=== PATIENT | female | born 1990 | race Caucasian/White ===

== ENCOUNTER 2016-09-03 09:42 | Emergency (ER) | payer BC ==
[2016-09-03] MEDS ORDERED: SULFAMETHOXAZOLE/TRIMETHOPRIM 800-160 MG TABLET PO ONE (11:21)
[2016-09-03] MEDS ORDERED: HYDROCODONE/ACETAMINOPHEN 5-325 MG 6 TAB/DSPK PO PRN (11:22)
--- NOTE | 2016-09-03 11:28 | ER Document Report ---
ED General - General Chief Complaint: Rectal Pain Stated Complaint: RECTAL PAIN Mode of Arrival: Ambulatory Information source: Patient Notes: Patient presents to the emergency department with complaints of pain to her rectal area, possibly hemorrhoids.. Patient reports she noted pain started on Wednesday increasing since then. Patient reports she treated herself with preparation H felt a little better but still continued hurt. Denies other symptoms such as fever vomiting diarrhea. Denies history of hemorrhoids. TRAVEL OUTSIDE OF THE [place] IN LAST 30 DAYS: No - HPI Onset: Other Onset/Duration: Persistent - Wednesday Quality of pain: Achy, Pressure Severity: Severe Pain Level: 4 Associated symptoms: None Exacerbated by: Sitting Relieved by: Denies Similar symptoms previously: No Recently seen / treated by doctor: No - Related Data Allergies/Adverse Reactions: Penicillins Allergy (Verified 09/03/16 09:47) Past Medical History - General Information source: Patient Last Menstrual Period: 08/23/16 denies - Social History Smoking Status: Current Every Day Smoker Chew tobacco use (# tins/day): No Frequency of alcohol use: Rare Drug Abuse: None Occupation: also Lives with: Friend - Roommates Family History: Reviewed & Not Pertinent Patient has suicidal ideation: No Patient has homicidal ideation: No - Medical History Medical History: Negative Renal/ Medical History: Denies: Hx Peritoneal Dialysis Past Surgical History: Reports: Hx Tonsillectomy Review of Systems - Review of Systems Notes: Review HPI for review of systems., All other systems negative Physical Exam - Vital signs Vitals: Temp Pulse Resp BP Pulse Ox 98.2 F 103 H 17 142/97 H 96 09/03/16 09:46 09/03/16 09:46 09/03/16 09:46 09/03/16 09:46 09/03/16 09:46 - Notes Notes: PHYSICAL EXAMINATION: GENERAL: Well-appearing and in no acute distress anxious HEAD: Atraumatic, normocephalic. EYES: Pupils equal round extraocular movements intact, sclera anicteric, conjunctiva are normal. ENT: nares patent . Moist mucous membranes. NECK: Normal range of motion, supple LUNGS: RR even/unlabored ABDOMEN: No c/o pain EXTREMITIES: Normal range of motion, no pitting edema. No cyanosis. NEUROLOGICAL: Cranial nerves grossly intact. Normal sensory/motor PSYCH: Normal mood, normal affect. SKIN: Warm, Dry, normal turgor, + abscess right buttocks - Skin Skin Temperature: Warm Skin Moisture: Dry Skin irregularity: Abscess Location of irregularity: Other - right buttocks abscess noted close to gluteal fold, no rectal abscess Course - Re-evaluation Re-evalutation: 09/03/16 11:31 As soon as I examined patient's right buttocks gluteal fold the abscess started draining. I drained a very large amount of copious white bloody discharge from the site by palpation and pushing the area. No incision was made. No induration noted. No abscess noted around her rectal area. Patient tolerated the procedure well. Patient was instructed on the signs and symptoms of infection. Patient was also instructed on how to care for the abscess. She was instructed to return tomorrow for recheck. She was instructed that if the area became more painful, larger to come back sooner. Patient reports she cannot afford medications. We discussed sulfa that is on the $4 list. She reports she is not . Patient reports she will be able to pick that up. She was prescribed dispense pack [place] for pain. - Vital Signs Vital signs: Temp Pulse Resp BP Pulse Ox 98.2 F 103 H 17 142/97 H 96 09/03/16 09:46 09/03/16 09:46 09/03/16 09:46 09/03/16 09:46 09/03/16 09:46 Discharge - Discharge Clinical Impression: Abscess, Elevated blood pressure reading Condition: Stable Disposition: HOME, SELF-CARE Instructions: Abscess ([facility]), Oral Narcotic Medication ([facility]), Trimethoprim- Sulfa ([facility]) Additional Instructions: *You have been treated for an abscess with drainage *Take medication as prescribed *Monitor the site for signs of increasing infection such as increasing pain, redness, swelling, warmth *Wash the site twice daily as discussed *Follow up here for a recheck tomorrow *Return to ED earlier for signs of increasing infection, worsening condition, changes, needs *Monitor your blood pressure. Your blood pressure was elevated today. This may be because you were anxious, in pain or because you need medication. It is important to follow up with your primary care provider for full evaluation. Prescriptions: Sulfamethoxazole/Trimethoprim [Bactrim Ds Tablet] 1 each PO BID #20 tablet Forms: Elevated Blood Pressure, Return to Work
[2016-09-03 11:41] VITALS: BP 131/91
== END 2016-09-03 11:43 | disposition home or self-care (01) ==
LOC: ER 09:42
DX: L02.31 Cutaneous abscess of buttock (principal); K62.89 Other specified diseases of anus and rectum; R03.0 Elevated blood-pressure reading, without diagnosis of hypertension; F17.200 Nicotine dependence, unspecified, uncomplicated; Z88.0 Allergy status to penicillin
CPT/HCPCS: 87070; 87075; 87077; 87186; 87205; 99283

== ENCOUNTER 2016-09-05 22:40 | Emergency (ER) | payer BC ==
[2016-09-06] MEDS ORDERED: HYDROCODONE/ACETAMINOPHEN 5-325 MG TABLET PO ONE (00:05)
--- NOTE | 2016-09-06 00:09 | ER Document Report ---
ED General - General Chief Complaint: Rectal Abscess Stated Complaint: POSSIBLE ABSCESS Notes: Patient is a 26-year-old female who was seen here a few days ago after having a gluteal abscess incised and drained. Patient says initially was doing better but now starting to swell again. She still has a very small hole that is draining however Draining a small amount and she feels as if it is becoming more painful. No fevers. No vomiting. She has been taking Bactrim. She was sent home with 6 [place] tablets but has since ran out and the pain is getting worse. She has no other complaints at this time. TRAVEL OUTSIDE OF THE [place] IN LAST 30 DAYS: No - Related Data Allergies/Adverse Reactions: Penicillins Allergy (Verified 09/03/16 09:47) Past Medical History - Social History Smoking Status: Current Every Day Smoker Frequency of alcohol use: Occasional Drug Abuse: Marijuana Family History: Reviewed & Not Pertinent Patient has suicidal ideation: No Patient has homicidal ideation: No Renal/ Medical History: Denies: Hx Peritoneal Dialysis Past Surgical History: Reports: Hx Tonsillectomy Review of Systems - Review of Systems Notes: My Normal Review Basic REVIEW OF SYSTEMS: CONSTITUTIONAL : Denies fever, chills, or sweats. Denies recent illness. GASTROINTESTINAL: Denies abdominal pain. Denies nausea, vomiting, or diarrhea. Denies constipation. Last BM: MUSCULOSKELETAL: Denies neck or back pain or joint pain or swelling. SKIN: Gluteal abscess NEUROLOGICAL: Denies altered mental status or loss of consciousness. ALL OTHER SYSTEMS REVIEWED AND NEGATIVE. Physical Exam - Vital signs Vitals: Temp Pulse Resp BP Pulse Ox 97.8 F 109 H 18 135/84 H 97 09/05/16 22:43 09/05/16 22:43 09/05/16 22:43 09/05/16 22:43 09/05/16 22:43 - Notes Notes: General Appearance: Well nourished, alert, cooperative, no acute distress, no obvious discomfort. Vitals: reviewed, See vital signs table. Eyes: PERRL, EOMI, Conjuctiva clear Extremities: strength 5/5 in all extremities, good pulses in all extremities, no swelling or tenderness in the extremities, no edema. Rectal: Abscess is approximately 3 inches away from the rectum in the left clear cleft. Abscess is not extend into the rectum. Very fluctuance is approximately 2 cm. There is a small hole leftover from the previous incision. It is draining a small amount of pus. Skin: warm, dry, appropriate color, no rash Neuro: speech clear, oriented x 3, normal affect, responds appropriately to questions. Course - Vital Signs Vital signs: Temp Pulse Resp BP Pulse Ox 97.8 F 109 H 18 135/84 H 97 09/05/16 22:43 09/05/16 22:43 09/05/16 22:43 09/05/16 22:43 09/05/16 22:43 - Transfer of Care Notes: 09/06/16 00:45 Patient's abscess was reaccumulating and the initial incision was almost completely sealed. I did incise make the hole larger. I did apply packing. I was able to give a moderate to large amount of pus after the incision. Patient feels much improved. Again the abscess does not extend down to the rectum on physical exam. Abscess is approximately 2 inches away from the rectum. There is no erythema or redness or swelling going into the rectum. I informed the patient that she must return to ER immediately if she has recurrent swelling, fever, or increasing pain. Encourage return to ER in 2 days for reevaluation. Patient agrees with plan and will be discharged home. Dictation of this chart was performed using voice recognition software; therefore, there may be some unintended grammatical errors. Procedures - Incision and Drainage right gluteal Type: Simple Blade size: 11 I&D procedure: Shurclens applied Incision Method: Incision made by scalpel Amount/type of drainage: moderate amount of purulent Notes: 09/06/16 00:45 Packing placed to keep void open for continued drainage Discharge - Discharge Clinical Impression: Abscess Disposition: HOME, SELF-CARE Additional Instructions: ABSCESS: POST INCISION AND DRAINAGE: You have had an incision made to allow drainage of an abscess. The incision must remain open so that pus and debris can drain from the wound. If the abscess cavity is large, packing is placed. This keeps the tissues from collapsing and trapping pus inside, while the body shrinks the cavity. The packing may need to be replaced every day or two. The physician will instruct you on the packing. Keep a bulky dressing over the area. Replace it if it becomes saturated with blood or pus. Do not disturb the packing (if present). You may shower and cleanse the area with gentle soap and warm water two or three times a day. Local warmth may be soothing, and may promote faster healing. Return if you develop high fever or chills, or if you note spreading redness, increasing swelling, or increasing tenderness. ORAL NARCOTIC MEDICATION: You have been given a prescription for pain control. This medication is a narcotic. It's best taken with food, as nausea can result if taken on an empty stomach. Don't operate machinery or drive within six hours of taking this medication. Do not combine this medicine with alcohol, or with any medication which can cause sedation (such as cold tablets or sleeping pills) unless you get permission from the physician. Narcotics tend to cause constipation. If possible, drink plenty of fluids and eat a diet high in fiber and fruits. FOLLOW-UP CARE: Most simple abscesses will not require a follow up visit. If you had packing placed in the abscess, remove it as instructed by the physician. If you have been referred to a physician for follow-up care, call the physicians office for an appointment as you were instructed or within the next two days. If you experience worsening or a significant change in your symptoms, return to the Emergency Department at any time for re-evaluation. Please return to the ER or a physician in 2 days for reevaluation. Please return to the ER immediately if you have increased swelling, fevers, or increasing pain over the area of the abscess. Prescriptions: Clindamycin HCl 300 mg PO ASDIR #56 capsule Hydrocodone/Acetaminophen [[place] 5-325 mg Tablet] 1 tab PO Q4 PRN #16 tablet PRN Reason: For [facility] Pain Forms: Return to Work
[2016-09-06] MEDS ORDERED: HYDROCODONE/ACETAMINOPHEN 5-325 MG 6 TAB/DSPK PO PRN (00:44)
[2016-09-06 00:54] VITALS: BP 120/72
== END 2016-09-06 01:03 | disposition home or self-care (01) ==
LOC: ER 22:40
PROC: 0H98XZZ Drainage of Buttock Skin, External Approach (ICD-10-PCS; principal; 2016-09-05)
DX: K61.1 Rectal abscess (principal); F17.210 Nicotine dependence, cigarettes, uncomplicated
CPT/HCPCS: 99283

== ENCOUNTER 2017-07-15 09:09 | Emergency (ER) | payer SELFPAY ==
[2017-07-15 09:15] VITALS: BP 144/83
[2017-07-15] MEDS ORDERED: OXYCODONE-ACETAMINOPHEN 5-325 MG TABLET PO ONE (09:27)
[2017-07-15] MEDS ORDERED: SULFAMETHOXAZOLE/TRIMETHOPRIM 800-160 MG TABLET PO ONE (09:31)
--- NOTE | 2017-07-15 09:34 | ER Document Report ---
HPI - HPI Patient complains to provider of: abscess Onset: Other - 3 days Onset/Duration: Persistent Quality of pain: Achy Pain Level: 5 Context: Patient presents with abscess to right medial thigh for the past 3 days. Patient denies any fever. Associated Symptoms: denies: Fever Exacerbated by: Movement Relieved by: Denies Similar symptoms previously: Yes Recently seen / treated by doctor: No - ROS ROS below otherwise negative: Yes Systems Reviewed and Negative: Yes All other systems reviewed and negative - CONSTITUTIONAL Constitutional: DENIES: Fever, Chills - GASTROINTESTINAL Gastrointestinal: DENIES: Nausea - REPRODUCTIVE LMP: 1 week - MUSCULOSKELETAL Musculoskeletal: REPORTS: Extremity pain - DERM Skin Color: Erythema Past Medical History - General Information source: Patient - Social History Smoking Status: Current Every Day Smoker Smoking Education Provided: Yes Frequency of alcohol use: Occasional Drug Abuse: Marijuana Occupation: Call center Family History: Reviewed & Not Pertinent Patient has suicidal ideation: No Patient has homicidal ideation: No - Medical History Medical History: Negative Renal/ Medical History: Denies: Hx Peritoneal Dialysis Past Surgical History: Reports: Hx Tonsillectomy Vertical Provider Document - CONSTITUTIONAL Agree With Documented VS: Yes Exam Limitations: No Limitations General Appearance: WD/WN, No Apparent Distress - INFECTION CONTROL TRAVEL OUTSIDE OF THE [place] IN LAST 30 DAYS: No - HEENT HEENT: Atraumatic, Normocephalic - NECK Neck: Normal Inspection - RESPIRATORY Respiratory: No Respiratory Distress O2 Sat by Pulse Oximetry: 98 - CARDIOVASCULAR Cardiovascular: Regular Rate, Regular Rhythm - MUSCULOSKELETAL/EXTREMETIES Musculoskeletal/Extremeties: MAEW, Tender - Right medial thigh tenderness with abscess - NEURO Level of Consciousness: Awake, Alert, Appropriate Motor/Sensory: No Motor Deficit - DERM Integumentary: Warm, Dry, Abscess - Right medial thigh abscess with central area of fluctuance Course - Re-evaluation Re-evalutation: 07/15/17 09:33 The patient has been informed that they may have pre-hypertension or hypertension based on a blood pressure reading in the emergency department. I recommend that patient call the primary care provider listed on their discharge instructions or a physician of their choice by this week to arrange follow-up for further evaluation of possible pre-hypertension or hypertension. Smoking cessation handout provided to patient 07/15/17 09:35 Controlled substance database reviewed - Vital Signs Vital signs: Temp Pulse Resp BP Pulse Ox 98.3 F 96 18 144/83 H 98 07/15/17 09:14 07/15/17 09:14 07/15/17 09:14 07/15/17 09:14 07/15/17 09:14 Procedures - Incision and Drainage Right Thigh Type: Simple Anesthetic type: 1% Lidocaine Blade size: 11 I&D procedure: Betadine prep applied Incision Method: Incision made by scalpel Amount/type of drainage: large amount of purulent drainage Adult Front & Back picture: 1 - abscess Discharge - Discharge Clinical Impression: Abscess, Encounter for incision and drainage procedure, Elevated blood pressure reading Condition: Stable Disposition: HOME, SELF-CARE Instructions: Abscess ([facility]), Oral Narcotic Medication ([facility]), Post Incision and Drainage, Trimethoprim-Sulfa ([facility]) Additional Instructions: Return immediately for any new or worsening symptoms Followup with your primary care provider, call tomorrow to make a followup appointment Prescriptions: Oxycodone HCl/Acetaminophen [Percocet 5-325 mg Tablet] 1 tab PO ASDIR PRN #12 tablet PRN Reason: Sulfamethoxazole/Trimethoprim [Bactrim Ds Tablet] 1 each PO BID #20 tablet Forms: Elevated Blood Pressure, Smoking Cessation Education, Return to Work Referrals: [facility] [Provider Group] - Follow up as needed
== END 2017-07-15 10:35 | disposition home or self-care (01) ==
LOC: ER 09:09
PROC: 0H9HXZZ Drainage of Right Upper Leg Skin, External Approach (ICD-10-PCS; principal; 2017-07-15)
DX: L02.415 Cutaneous abscess of right lower limb (principal); R03.0 Elevated blood-pressure reading, without diagnosis of hypertension; F17.210 Nicotine dependence, cigarettes, uncomplicated
CPT/HCPCS: 99283

== ENCOUNTER 2018-06-23 11:53 | Emergency (ER) | payer SELFPAY ==
[2018-06-23] MEDS ORDERED: ONDANSETRON ODT 4 MG TAB (6 TAB/ER DISP) PO PRN (13:14)
--- NOTE | 2018-06-23 13:18 | ER Document Report ---
HPI - HPI Patient complains to provider of: tailbone pain Time Seen by Provider: 06/23/18 12:41 Onset: Other - wednesday Onset/Duration: Persistent, Worse Quality of pain: Achy Severity: Severe Pain Level: 4 Context: Patient presents emergency department with complaints of tailbone pain. Patient reports she had sex doggy style on Wednesday and the area has been hurting since then. Denies other symptoms such as fever vomiting diarrhea but reports she has been feeling nauseated. She reports that she believes she had food poisoning from [employer] on Wednesday and it is still lingering. Patient does have a history of pilonidal cyst but reports it does not feel the same. Associated Symptoms: None Exacerbated by: Denies Relieved by: Denies Similar symptoms previously: No Recently seen / treated by doctor: No - REPRODUCTIVE Reproductive: DENIES: : Past Medical History - General Information source: Patient Last Menstrual Period: May denies - Social History Smoking Status: Current Every Day Smoker Cigarette use (# per day): Yes Frequency of alcohol use: None Drug Abuse: None Occupation: [employer] Lives with: Friend - boyfriend Family History: Reviewed & Not Pertinent Patient has suicidal ideation: No Patient has homicidal ideation: No Renal/ Medical History: Denies: Hx Peritoneal Dialysis Skin Medical History: Reports Other - Pilonidal abscess Past Surgical History: Reports: Hx Tonsillectomy Vertical Provider Document - CONSTITUTIONAL Agree With Documented VS: Yes Exam Limitations: No Limitations General Appearance: WD/WN, No Apparent Distress - INFECTION CONTROL TRAVEL OUTSIDE OF THE [place] IN LAST 30 DAYS: No - HEENT HEENT: Atraumatic, Normocephalic - NECK Neck: Supple - RESPIRATORY Respiratory: No Respiratory Distress - CARDIOVASCULAR Cardiovascular: Regular Rate - GI/ABDOMEN Gastrointestinal: Abdomen Soft, Abdomen Non-Tender - BACK Back: Normal Inspection - MUSCULOSKELETAL/EXTREMETIES Musculoskeletal/Extremeties: MERE VOGEL - NEURO Level of Consciousness: Awake, Alert, Appropriate Motor/Sensory: No Motor Deficit - DERM Integumentary: Abscess Adult Front & Back Diagram: 1 - swollen, firm, no fluctuance, no erythema, no warmth Course - Re-evaluation Re-evalutation: 06/23/18 13:28 pt is very tearful, she doesn't want to go thur the I&D again, the area is not right to open, + induration, no erythema swelling fluctuance. - Vital Signs Vital signs: Temp Pulse Resp BP Pulse Ox 98.7 F 92 18 142/72 H 99 06/23/18 12:16 06/23/18 12:16 06/23/18 12:16 06/23/18 12:16 06/23/18 12:16 Discharge - Discharge Clinical Impression: Pilonidal abscess Condition: Stable Disposition: HOME, SELF-CARE Instructions: Abscess ([facility]), Antinausea Medication ([facility]), Ibuprofen (General) ([facility]), Trimethoprim-Sulfa ([facility]), Warm Packs ([facility]) Additional Instructions: *You have been treated for an abscess, it is not ready to be opened yet *Take medication as prescribed *Monitor the site for signs of increasing infection such as increasing pain, redness, swelling, warmth *Apply warm packs *Follow up with a primary care provider within 3 days *Return to ED for signs of increasing infection, worsening condition, changes, needs Prescriptions: Ibuprofen [Motrin 800 mg Tablet] 800 mg PO TID #20 tablet Sulfamethoxazole/Trimethoprim [Bactrim Ds Tablet] 1 each PO BID #20 tablet Forms: Elevated Blood Pressure, Smoking Cessation Education, Return to Work
[2018-06-23 14:11] VITALS: BP 133/86
== END 2018-06-23 14:11 | disposition home or self-care (01) ==
LOC: ER 11:53
DX: L05.01 Pilonidal cyst with abscess (principal); R11.0 Nausea; F17.210 Nicotine dependence, cigarettes, uncomplicated
CPT/HCPCS: 99282

== ENCOUNTER 2018-06-25 17:51 | Emergency (ER) | payer SELFPAY ==
[2018-06-25] MEDS ORDERED: LIDOCAINE 1% INJ-PF (10 MG/ML) 30 ML SDV INJ ONE (18:10)
--- NOTE | 2018-06-25 18:18 | ER Document Report ---
ED Skin Rash/Insect Bite/Abscs - General Chief Complaint: Abscess Recheck Stated Complaint: ABCESS Time Seen by Provider: 06/25/18 18:06 Mode of Arrival: Ambulatory Information source: Patient Notes: 28-year-old female presented to ED for pilonidal cyst. She states she was seen here a couple days ago started on antibiotics but was told that it was too O early to open and she would need to come back. Patient is alert and oriented respirations regular and unlabored speaking in full sentences. TRAVEL OUTSIDE OF THE [place] IN LAST 30 DAYS: No - HPI Patient complains to provider of: Tender/swollen area Onset: Last week Onset/Duration: Gradual, Worse Quality of pain: Sharp, Throbbing Severity: Moderate Pain Level: 4 Skin Character: Abscess - Pilonidal abscess Quality of rash: Painful Identify cause: Yes Exacerbated by: Sitting Relieved by: Denies Similar symptoms previously: Yes Recently seen / treated by doctor: Yes - Related Data Allergies/Adverse Reactions: Penicillins Allergy (Verified 06/25/18 17:52) Past Medical History - General Information source: Patient - Social History Smoking Status: Current Every Day Smoker Cigarette use (# per day): Yes Smoking Education Provided: Yes - 4min Frequency of alcohol use: None Drug Abuse: None Occupation: [employer] Lives with: Spouse/Significant other Family History: Reviewed & Not Pertinent Patient has suicidal ideation: No Patient has homicidal ideation: No - Past Medical History Cardiac Medical History: Reports: None Pulmonary Medical History: Reports: None EENT Medical History: Reports: None Neurological Medical History: Reports: None Endocrine Medical History: Reports: None Renal/ Medical History: Reports: None Malignancy Medical History: Reports: None GI Medical History: Reports: None Musculoskeletal Medical History: Reports None Skin Medical History: Reports Hx Cellulitis - Pilonidal cyst Psychiatric Medical History: Reports: None Traumatic Medical History: Reports: None Infectious Medical History: Reports: None Past Surgical History: Reports: Hx Tonsillectomy - Immunizations Immunizations up to date: Yes Review of Systems - Review of Systems Constitutional: No symptoms reported EENT: No symptoms reported Cardiovascular: No symptoms reported Respiratory: No symptoms reported Gastrointestinal: No symptoms reported Genitourinary: No symptoms reported Female Genitourinary: No symptoms reported Musculoskeletal: No symptoms reported Skin: Other - Pilonidal cyst Hematologic/Lymphatic: No symptoms reported Neurological/Psychological: No symptoms reported -: Yes All other systems reviewed and negative Physical Exam - Vital signs Vitals: Temp Pulse Resp BP Pulse Ox 97.8 F 114 H 18 134/87 H 98 06/25/18 17:56 06/25/18 17:56 06/25/18 17:56 06/25/18 17:56 06/25/18 17:56 Interpretation: Normal - General General appearance: Appears well, Alert - HEENT Head: Normocephalic, Atraumatic Eyes: Normal Pupils: PERRL - Respiratory Respiratory status: No respiratory distress Chest status: Nontender Breath sounds: Normal Chest palpation: Normal - Cardiovascular Rhythm: Regular Heart sounds: Normal auscultation Murmur: No - Abdominal Inspection: Normal Distension: No distension Bowel sounds: Normal Tenderness: Nontender Organomegaly: No organomegaly - Back Back: Normal, Nontender - Extremities General upper extremity: Normal inspection, Nontender, Normal color, Normal ROM, Normal temperature General lower extremity: Normal inspection, Nontender, Normal color, Normal ROM, Normal temperature, Normal weight bearing. No: João's sign - Neurological Neuro grossly intact: Yes Cognition: Normal Orientation: AAOx4 Charly Coma Scale Eye Opening: Spontaneous Charly Coma Scale Verbal: Oriented Charly Coma Scale Motor: Obeys Commands Bells Coma Scale Total: 15 Speech: Normal Motor strength normal: LUE, RUE, LLE, RLE Sensory: Normal - Psychological Associated symptoms: Normal affect, Normal mood - Skin Skin Temperature: Warm Skin Moisture: Dry Skin Color: Normal Skin irregularity: Abscess - pilonidal cyst Location of irregularity: Other - buttocks Irregularity with: Swelling, Tenderness, Inflammation Course - Re-evaluation Re-evalutation: 06/25/18 21:10 Patient was already started on Bactrim 2 days ago. Patient stated that the provider that saw her 2 days ago said it was not ready to be I&D at that time. I&D was completed and the wound was packed with iodoform after rinsing the wound well with saline. Patient tolerated procedure well. Patient was discharged home with a [place] dispense pack. Patient was instructed to return to the ED if she did not get relief from symptoms with the pain medicine and antibiotics. Patient to remove the packing in 2 days. Patient verbalized understanding and agreement with treatment plan. - Vital Signs Vital signs: Temp Pulse Resp BP Pulse Ox 98.6 F 97 18 120/86 H 100 06/25/18 19:31 06/25/18 19:31 06/25/18 19:31 06/25/18 19:31 06/25/18 19:31 Procedures - Incision and Drainage Pilonidal Time completed: 19:15 Type: Simple Anesthetic type: 1% Lidocaine mL's of anesthetic: 7 Blade size: 11 I&D procedure: Shurclens applied, Iodoform packing placed Incision Method: Incision made by scalpel Discharge - Discharge Clinical Impression: Pilonidal abscess Condition: Stable Disposition: HOME, SELF-CARE Instructions: Family Physicians / Practices Additional Instructions: ABSCESS: You have an abscess (boil). This a pus-forming infection, usually due to staph. Some boils may be left to drain on their own, but most require lancing. From the time the tender lump first appears, it may be three or four days before the abscess is ready to [place]. Local heat and rest help at this stage of treatment. An antibiotic may prevent spread of the infection. Once the abscess is opened, packing may be placed into it. This is done so pus is not sealed inside by premature closure of the cavity. The packing will be removed at your follow-up visit or you may be advised to remove it yourself at home. Sometimes this packing must be replaced a few times during healing. The wound will heal with surprisingly little scar. Depending on the size and location of an abscess, healing can take one to four weeks. You may shower and wash the area around the incision site two or three times a day. Antibiotics may be prescribed, but are usually not necessary after an abscess has been drained. If you develop fever, chills, worsening pain, or increasing swelling in the area, call the doctor or return immediately. POST INCISION AND DRAINAGE: You have had an incision made to allow drainage of an abscess. The incision must remain open so that pus and debris can drain from the wound. If the abscess cavity is large, packing is placed. This keeps the tissues from collapsing and trapping pus inside, while the body shrinks the cavity. The packing may need to be replaced every day or two. The physician will instruct you on the packing. Keep a bulky dressing over the area. Replace it if it becomes saturated with blood or pus. Do not disturb the packing (if present). You may shower and cleanse the area with gentle soap and warm water two or three times a day. Local warmth may be soothing, and may promote faster healing. Return if you develop high fever or chills, or if you note spreading redness, increasing swelling, or increasing tenderness. ORAL NARCOTIC MEDICATION: You have been given a [place] dispense pack for pain control. This medication is a narcotic. It's best taken with food, as nausea can result if taken on an empty stomach. Don't operate machinery or drive within six hours of taking this m edication. Do not combine this medicine with alcohol, or with any medication which can cause sedation (such as cold tablets or sleeping pills) unless you get permission from the physician. Narcotics tend to cause constipation. If possible, drink plenty of fluids and eat a diet high in fiber and fruits. Continue taking your antibiotics as prescribed. Please remove the packing on Wednesday. If you are not feeling better and if your abscess is still very swollen please return to the ED for reexamination. After removing the packing use the shower spray and shower directly on the abscess to wash the area FOLLOW-UP CARE: Most simple abscesses will not require a follow up visit. If you had packing placed in the abscess, remove it as instructed by the physician. If you have been referred to a physician for follow-up care, call the physicians office for an appointment as you were instructed or within the next two days. If you experience worsening or a significant change in your symptoms, return to the Emergency Department at any time for re-evaluation. Forms: Elevated Blood Pressure, Smoking Cessation Education, Return to Work
[2018-06-25] MEDS ORDERED: HYDROCODONE/ACETAMINOPHEN 5-325 MG (6 TAB/ER DISP) PO PRN (19:15)
[2018-06-25 19:33] VITALS: BP 120/86
== END 2018-06-25 19:32 | disposition home or self-care (01) ==
LOC: ER 17:51
PROC: 0H98XZZ Drainage of Buttock Skin, External Approach (ICD-10-PCS; principal; 2018-06-25)
DX: L05.01 Pilonidal cyst with abscess (principal); F17.210 Nicotine dependence, cigarettes, uncomplicated
CPT/HCPCS: 10080; 99406; 99283; J3490

== ENCOUNTER 2018-08-17 12:28 | Emergency (ER) | payer SELFPAY ==
[2018-08-17] MEDS ORDERED: ONDANSETRON 4 MG TAB.RAPDIS PO ONE (14:13)
[2018-08-17] MEDS ORDERED: OXYCODONE-ACETAMINOPHEN 5-325 MG TABLET PO ONE (14:13)
--- NOTE | 2018-08-17 14:13 | ER Document Report ---
ED Medical Screen (RME) - General Chief Complaint: Abscess Stated Complaint: POSSIBLE ABSCESS Time Seen by Provider: 08/17/18 12:43 Mode of Arrival: Ambulatory Information source: Patient Notes: 28-year-old female with history of recurrent pilonidal cyst presents with complaint of 3 days of buttock pain, redness and swelling as well as associated nausea. I have greeted and performed a rapid initial assessment of this patient. A comprehensive ED assessment and evaluation of the patient, analysis of test results and completion of medical decision making process we will be contacted by additional ED providers. PHYSICAL EXAMINATION: Vital signs reviewed GENERAL: Well-appearing, well-nourished and in no acute distress. LUNGS: No respiratory distress Musculoskeletal: Normal range of motion NEUROLOGICAL: Normal speech, normal gait. PSYCH: Normal mood, normal affect. TRAVEL OUTSIDE OF THE [place] IN LAST 30 DAYS: No - HPI Onset: Last week Onset/Duration: Persistent Quality of pain: Throbbing Severity: Moderate Associated Symptoms: Nausea Exacerbated by: Sitting Relieved by: Denies Similar symptoms previously: Yes Recently seen / treated by doctor: Yes - Related Data Smoking: Cigarettes Frequency of alcohol use: Occasional Drug Abuse: None Allergies/Adverse Reactions: Penicillins Allergy (Verified 08/17/18 12:29) Past Medical History - Social History Chew tobacco use (# tins/day): No Frequency of alcohol use: None Drug Abuse: None Renal/ Medical History: Denies: Hx Peritoneal Dialysis Skin Medical History: Reports Hx Cellulitis - Pilonidal cyst Past Surgical History: Reports: Hx Tonsillectomy - Immunizations Immunizations up to date: Yes Physical Exam - Vital signs Vitals: Temp Pulse Resp BP Pulse Ox 98.3 F 101 H 16 134/83 H 99 08/17/18 12:45 08/17/18 12:45 08/17/18 12:45 08/17/18 12:45 08/17/18 12:45 Course - Vital Signs Vital signs: Temp Pulse Resp BP Pulse Ox 98.3 F 101 H 16 134/83 H 99 08/17/18 12:45 08/17/18 12:45 08/17/18 12:45 08/17/18 12:45 08/17/18 12:45
--- NOTE | 2018-08-17 15:57 | ER Document Report ---
Addendum entered and electronically signed by FAYE EDDY NP 08/19/18 14:16: Procedures - Incision and Drainage Buttock Type: Simple Anesthetic type: 1% Lidocaine Blade size: 11 I&D procedure: Betadine prep applied Incision Method: Incision made by scalpel Amount/type of drainage: Large amount of purulent drainage Original Note: HPI - HPI Patient complains to provider of: abscess Time Seen by Provider: 08/17/18 12:43 Onset: Other - 3 days Onset/Duration: Persistent Quality of pain: Achy Pain Level: 4 Context: Patient has a history of pilonidal abscess and suspects the same today. Patient complains of tenderness and swelling to the buttock area for the past 3 days. Patient denies any fever. Associated Symptoms: denies: Fever Exacerbated by: Sitting, Movement Relieved by: Denies Similar symptoms previously: Yes Recently seen / treated by doctor: No - ROS ROS below otherwise negative: Yes Systems Reviewed and Negative: Yes All other systems reviewed and negative - CONSTITUTIONAL Constitutional: DENIES: Fever, Chills - NEURO Neurology: DENIES: Weakness - GASTROINTESTINAL Gastrointestinal: DENIES: Nausea - REPRODUCTIVE Reproductive: DENIES: : - DERM Skin Color: Normal Notes: Abscess Past Medical History - General Information source: Patient - Social History Smoking Status: Current Every Day Smoker Chew tobacco use (# tins/day): No Smoking Education Provided: Yes Frequency of alcohol use: None Drug Abuse: None Occupation: [employer] Lives with: Spouse/Significant other Family History: Reviewed & Not Pertinent Patient has suicidal ideation: No Patient has homicidal ideation: No - Medical History Medical History: Negative Renal/ Medical History: Denies: Hx Peritoneal Dialysis Skin Medical History: Reports Hx Cellulitis - Pilonidal cyst Past Surgical History: Reports: Hx Tonsillectomy - Immunizations Immunizations up to date: Yes Vertical Provider Document - CONSTITUTIONAL Agree With Documented VS: Yes Exam Limitations: No Limitations General Appearance: WD/WN, No Apparent Distress - INFECTION CONTROL TRAVEL OUTSIDE OF THE [place] IN LAST 30 DAYS: No - HEENT HEENT: Atraumatic, Normocephalic - NECK Neck: Normal Inspection - RESPIRATORY Respiratory: No Respiratory Distress - BACK Back: Normal Inspection - MUSCULOSKELETAL/EXTREMETIES Musculoskeletal/Extremeties: MERE VOGEL - NEURO Level of Consciousness: Awake, Alert, Appropriate Motor/Sensory: No Motor Deficit - DERM Integumentary: Warm, Dry, Abscess - Fluctuant abscess to gluteal cleft Course - Vital Signs Vital signs: Temp Pulse Resp BP Pulse Ox 98.3 F 101 H 16 134/83 H 99 08/17/18 12:45 08/17/18 12:45 08/17/18 12:45 08/17/18 12:45 08/17/18 12:45 Discharge - Discharge Clinical Impression: Abscess, Encounter for incision and drainage procedure Condition: Stable Disposition: HOME, SELF-CARE Instructions: Abscess ([facility]), Post Incision and Drainage, Trimethoprim-Sulfa ([facility]) Additional Instructions: Return immediately for any new or worsening symptoms Followup with your primary care provider, call tomorrow to make a followup appointment Follow-up with surgeon for evaluation of recurrent abscesses Prescriptions: Naproxen [Naprosyn 250 Nmg Tablet] 1 tab PO BID #14 tablet Oxycodone HCl/Acetaminophen [Percocet 5-325 mg Tablet] 1 tab PO ASDIR PRN #10 tablet PRN Reason: Sulfamethoxazole/Trimethoprim [Bactrim Ds Tablet] 1 each PO BID #20 tablet Forms: Smoking Cessation Education, Return to Work Referrals: [facility] [Provider Group] - Follow up as needed
[2018-08-17 16:55] VITALS: BP 114/86
== END 2018-08-17 16:56 | disposition home or self-care (01) ==
LOC: ER 12:28
DX: L02.31 Cutaneous abscess of buttock (principal); F17.200 Nicotine dependence, unspecified, uncomplicated
CPT/HCPCS: 99283; 10060; S0119